=== PATIENT | female | born 1975 | race Caucasian/White ===

== ENCOUNTER 2016-11-13 05:53 | Inpatient (IN) ==
[2016-11-13] MEDS ORDERED: ASPIRIN PO STA (06:16)
[2016-11-13 06:33] LABS: MANUAL DIFF NEEDED? NO
[2016-11-13 06:39] LABS: BASO% 0.5 % (0.0-0.8); EOS# 0.28 X1000 (0.0-0.7); EOS% 2.3 % (0.0-10.0); HEMATOCRIT 40.8 % (37.0-47.0); HEMOGLOBIN 13.6 g/dL (12.0-16.0); IMM GRAN# 0.02 X1000 (0.0-0.04); IMM GRAN% 0.2 % (0.0-0.5); LYMPH# 1.47 X1000 (1.2-3.4); LYMPH% 12.3 % (20.5-51.1); MCH 30.6 PG (27-31); MCHC 33.3 g/dL (33-37); MCV 91.9 FL (81-99); MONO# 0.73 X1000 (0.11-0.59); MONO% 6.1 % (1.7-9.3); MPV 9.2 FL (7.4-10.4); NEUT% 78.6 % (42.2-75.2); PLT 268 X1000 (130-400); RBC 4.44 XMIL (4.2-5.4)
--- NOTE | 2016-11-13 06:45 | PROVIDER DOCUMENTATION ---
HPI-Chest Pain - General Chief Complaint: Chest Pain Stated Complaint: CP Time Seen by Provider: 11/13/16 06:18 Source: patient Allergies/Adverse Reactions: Patient Allergies Allergy/AdvReac Type Severity Reaction Status Date / Time No Known Allergies Allergy Verified 11/13/16 06:21 Home Medications: Home Medication List Medication Instructions Recorded Confirmed Last Taken Type Bupropion HCl [Budeprion Xl] 300 mg PO DAILY 11/13/16 11/13/16 11/12/16 History Citalopram [Celexa] 20 mg PO DAILY 11/13/16 11/13/16 11/12/16 History l-Norgest/E.estradiol-E.estrad 1 each PO DAILY 11/13/16 11/13/16 11/12/16 History [Amethia Lo Tablet] - History of Present Illness-CP Nature of Presenting Problem: Pt awoke around 4:30 this am with mildly pleuritic chest pain but no SOB, calf pain, dtc. She recently started on BCPs, denies any family of clots or CV disease, denies SNOW or CP on exertion. Location: reports: substernal, shoulder Chest Pain Radiation: reports: no radiation Quality of Pain: reports: sharp Onset/Duration: 4-6 hours ago Timing: improving Context/Activities at Onset: reports: sleep Modifying Factors: improves with: nothing Associated Symptoms: reports: denies symptoms Nitro Today/Relief: no nitro taken today Aspirin Treatment Today: no aspirin today Prior Chest Pain/Cardiac Workup: reports: no prior chest pain Similar Symptoms Previously?: No Recently Seen Here or By Another Healthcare Provider: No Review of Systems - Adult - REVIEW OF SYSTEMS - ADULT Constitutional: reports: no symptoms reported Eyes: reports: no symptoms reported Ears, Nose, Mouth & Throat: reports: no symptoms reported Cardiovascular: reports: see HPI Respiratory: reports: no symptoms reported Gastrointestinal: reports: no symptoms reported Genitourinary: reports: no symptoms reported Musculoskeletal: reports: no symptoms reported Integumentary: reports: no symptoms reported Neurological: reports: no symptoms reported Psychiatric: reports: no symptoms reported Endocrine: reports: no symptoms reported Hematologic/Lymphatic: reports: no symptoms reported Allergic/Immunologic: reports: no symptoms reported All Other Systems: Reviewed and Negative Past History - Adult - PAST MEDICAL HISTORY-ADULT Review of Records: reports: Old Records Reviewed, Nursing Assessment Review, Medications Reviewed Cardiovascular: reports: denies history. denies: cardiac disease Respiratory: denies: asthma Gastrointestinal: reports: denies history, cholelithiasis Physical Exam-General - PHYSICAL EXAM-ADULT Initial Vital Signs Reviewed: Yes - CONSTITUTIONAL General Appearance: appears well, alert, no apparent distress - EYES Eyes: PERRL/EOMI, pink conjunctivae - HEAD, EARS, NOSE, MOUTH & THROAT HENMT: normocephalic/atraumatic, moist mucous membranes, normal ENT inspection - NECK Neck: non-tender, full range of motion - RESPIRATORY Respiratory: chest non-tender, lungs clear, normal breath sounds - CARDIOVASCULAR Cardiovascular: normal peripheral pulses, regular rate, rhythm, no edema, no gallop, no JVD, no murmur - GASTROINTESTINAL (ABDOMEN) Abdominal Exam: normal bowel sounds, non tender, soft, no organomegaly - LYMPHATIC Lymphatic: no adenopathy - MUSCULOSKELETAL Back Exam: normal inspection, no CVA tenderness, no vertebral tenderness Extremity: normal range of motion, no pedal edema, no calf tenderness, normal capillary refill Peripheral Pulses: radial (R): 3+, radial (L): 3+ - SKIN Integumentary: normal color, normal turgor - NEUROLOGIC Neurologic: grossly normal - PSYCHIATRIC Psych/Mental Status: normal mood/affect Progress - PLAN OF CARE/RESULTS Progress/Plan/Lab Results: Vital Signs - 8 hr 11/13/16 05:57 11/13/16 07:12 11/13/16 08:23 Temperature 98.1 F Pulse Rate 73 71 72 Respiratory Rate 20 14 14 Blood Pressure 109/66 114/68 115/74 O2 Sat by Pulse Oximetry 99 95 98 Bedside Urine ED: Urine Bedside Start: 11/13/16 06:26 Freq: Status: Active Activity Type Activity Date Activity User E-Sign Co-Sign Detail Recorded Client Recorded Date Recorded By Document 11/13/16 06:26 [id number] 11/13/16 06:27 [id number] 11/13/16 06:26 Point of Care [Bedside Point of Care] -Lot # [id number] - Results Negative -Control Line Visible? Yes -Additional Comment exp. 12/2017 Laboratory Results - last 24 hr 11/13/16 11/13/16 11/13/16 06:15 06:15 06:15 WBC 11.96 H RBC 4.44 Hgb 13.6 Hct 40.8 MCV 91.9 MCH 30.6 MCHC 33.3 RDW Std Deviation 12.7 Plt Count 268 MPV 9.2 Immature Gran % (Auto) 0.2 Neut % (Auto) 78.6 H Lymph % (Auto) 12.3 L Falls % (Auto) 6.1 Eos % (Auto) 2.3 Baso % (Auto) 0.5 Immature Gran # (Auto) 0.02 Neut # (Auto) 9.40 H Lymph # (Auto) 1.47 Falls # (Auto) 0.73 H Eos # (Auto) 0.28 Baso # (Auto) 0.06 PT INR PTT (Actin FS) D-Dimer 3.14 H Sodium 138 Potassium 4.2 Chloride 102 Carbon Dioxide 24 L Anion Gap 12 BUN 11 Creatinine 0.8 Estimated GFR/1.73 m2 > 60 BUN/Creatinine Ratio 14 Glucose 90 Calculated Osmolality 275 Calcium 9.6 Magnesium 2.0 Total Bilirubin 0.43 AST 12 ALT 10 Alkaline Phosphatase 49 Creatine Kinase 45 Troponin T Tul-Q-Yjevbhdnato Pept Total Protein 7.0 Albumin 4.2 Globulin 2.8 Albumin/Globulin Ratio 1.5 11/13/16 11/13/16 11/13/16 06:15 06:15 06:15 WBC RBC Hgb Hct MCV MCH MCHC RDW Std Deviation Plt Count MPV Immature Gran % (Auto) Neut % (Auto) Lymph % (Auto) Falls % (Auto) Eos % (Auto) Baso % (Auto) Immature Gran # (Auto) Neut # (Auto) Lymph # (Auto) Falls # (Auto) Eos # (Auto) Baso # (Auto) PT 10.0 INR 0.96 PTT (Actin FS) 24.9 D-Dimer Sodium Potassium Chloride Carbon Dioxide Anion Gap BUN Creatinine Estimated GFR/1.73 m2 BUN/Creatinine Ratio Glucose Calculated Osmolality Calcium Magnesium Total Bilirubin AST ALT Alkaline Phosphatase Creatine Kinase Troponin T < 0.010 Mrd-T-Ahrmohbqkrw Pept 285 H Total Protein Albumin Globulin Albumin/Globulin Ratio Orders Category Date Time Status Cardiac Monitoring DIRECTED Care 11/13/16 06:16 Active Saline Loc NOW Care 11/13/16 06:16 Active ANGIOGRAM/PULMONARY ARTERIES [CT] Stat Exams 11/13/16 07:21 Completed CHEST-2 VIEWS [RAD] Stat Exams 11/13/16 06:16 Completed CBC WITH ELECTRONIC DIFF [HEME] Stat Lab 11/13/16 06:15 Completed CK PROFILE [SP CHEM] Stat Lab 11/13/16 06:15 Completed COMPREHENSIVE METABOLIC PANEL [CHEM] Stat Lab 11/13/16 06:15 Completed D-DIMER [CHEM] Stat Lab 11/13/16 06:15 Completed MAGNESIUM [CHEM] Stat Lab 11/13/16 06:15 Completed PRO B-NATRIURETIC PEPTIDE Stat Lab 11/13/16 06:15 Completed PROTIME WITH INR [COAG] Stat Lab 11/13/16 06:15 Completed PTT [COAG] Stat Lab 11/13/16 06:15 Completed TROPONIN T Stat Lab 11/13/16 06:15 Completed Aspirin Med 11/13/16 06:16 Discontinued 325 mg PO STAT STA Heparin Med 11/13/16 08:29 Once 5,200 unit IV NOW ONE EKG [EKG] Stat Ther 11/13/16 05:55 Draft Result Diagrams: 11/13/16 06:15 11/13/16 06:15 - EKG 1 Time of EKG reading by physician:: 06:30 EKG Read and Signed by:: Bang White EKG Interpretation (*Must complete 3 of following elements*): Abnormal Rate: 70 [place]: normal QRS: normal DE Interval: normal ST Wave: non-specific ST changes Prior EKG Comparison: no prior EKG - CT/MRI 1 CT Study: Thorax Impression: Abnormal, See EMR Report (Angiogram confirms bilateral pul emboli) Departure - Departure Time of Disposition Decision: 08:41 DIAGNOSIS: Pulmonary embolism Qualifiers: Pulmonary embolism type: other Chronicity: acute Acute cor pulmonale presence: without acute cor pulmonale Qualified Code(s): I26.99 - Other pulmonary embolism without acute cor pulmonale Disposition: ADMITTED INPATIENT 09 Certified Medical Emergency: Emergent Condition: Fair Referrals and Follow-Ups: Abida Magana MD [Primary Care Provider] - - Critical Care Note This patient required my direct & personal management of CC.: Yes Total Time (mins): 30 Critical Care Statement: This patient required my direct personal management to treat or rule out processes, the absence of which, could potentiallly result in sudden, clinically significant life or limb threatening deterioration.
[2016-11-13 06:58] LABS: AGAP 12; ALBUMIN 4.2 g/dL (3.5-5.0); ALKALINE PHOSPHATASE 49 U/L (32-104); BUN 11 mg/dL (8-22); CALCIUM 9.6 mg/dL (8.8-10.2); CHLORIDE 102 mmol/L (98-107); CK PROFILE 45 U/L (24-173); COSMO 275; GOT 12 U/L (10-30); GPT 10 U/L (10-36); POTASSIUM 4.2 mmol/L (3.5-5.1); SODIUM 138 mmol/L (136-145); TCO2 24 mmol/L (25-35); TOTAL BILIRUBIN 0.43 mg/dL (0.20-1.00)
[2016-11-13 07:00] LABS: INR 0.96; PTT 24.9 Seconds (22.0-36.0)
--- NOTE | 2016-11-13 07:01 | EKG Report ---
Test Performed on : 11/13/2016 06:02:17 AM Test Reason : cp Blood Pressure : / mmHG Vent. Rate : 070 BPM Atrial Rate : 070 BPM P-R Int : 126 ms QRS Dur : 078 ms QT Int : 388 ms P-R-T Axes : 042 045 000 degrees QTc Int : 419 ms Normal sinus rhythm. Nonspecific T wave abnormality Abnormal ECG No previous ECGs available Unconfirmed Result
--- NOTE | 2016-11-13 08:11 | Diag Imaging Result Doc PS360 ---
CHEST-2 VIEWS - 11/13/2016 6:16 AM INDICATION: Chest pain COMPARISON: None FINDINGS: The lungs are normally expanded and clear. Heart size and mediastinal contours are normal. No pneumothorax or pleural effusion. IMPRESSION: Negative exam. Electronically signed by Nick Avery 11/13/2016 7:44 AM
--- NOTE | 2016-11-13 08:25 | Diag Imaging Result Doc PS360 ---
EXAM: ANGIOGRAM/PULMONARY ARTERIES COMPARISON: None. FINDINGS: There are prominent filling defects seen in second and higher order branches of the right pulmonary artery supplying the right lower lobe. There are smaller filling defects seen in higher order branches of the left pulmonary artery supplying to the left lower lobe. This is consistent with acute pulmonary emboli. The clot burden is at least moderate. The heart is probably borderline prominent. There is no evidence of aortic dissection or aneurysm. There is no evidence of significant mediastinal or hilar lymphadenopathy. There is subsegmental atelectasis at both lung bases. There are trace bilateral effusions. There is a tiny nodular density along the minor fissure on the right measuring less than 4 mm. Statistically, this most likely represents a noncalcified granuloma if the patient has no risk factors for malignancy. IMPRESSION: 1. Bilateral acute pulmonary emboli with a moderate clot burden, worse on the right. 2. Bibasilar subsegmental atelectasis and trace bilateral effusions. 3. Other incidental/nonacute findings detailed above. 4. This critical result was reported to Dr. Bang White in the emergency department at 0822. Electronically signed by Michael Geronimo 11/13/2016 8:22 AM
[2016-11-13] MEDS ORDERED: HEPARIN IV ONE (08:29)
[2016-11-13] MEDS: DUONEB (A & A) INH SCH ×4 (11:00→23:17)
--- NOTE | 2016-11-13 11:53 | HISTORY AND PHYSICAL ---
PRIMARY CARE PHYSICIAN: Dr. Abida Magana. CHIEF COMPLAINT: Chest pain. HISTORY OF PRESENT ILLNESS: Mrs. Richardson is a very pleasant, 41-year-old female with a history of depression and anxiety who recently started control around 2 weeks ago. She comes into the ER today with a fairly acute onset of midsternal chest pain which she describes as sharp and shooting and radiating up through the left neck and to the left arm. This was not associated with shortness of breath, nausea, vomiting, or diaphoresis. The pain was severe enough for her to come into the ER for evaluation. In the ER, labs were done and she was noted to have fairly elevated D-dimer, a subsequent CTA of the chest was positive for scattered bilateral PE's. She is hemodynamically stable. Her laboratory data is largely unremarkable. She does report that she had some mild chest discomfort yesterday and she actually went to her PCP last week for lower back pain with radicular type symptoms to her right leg. At that time, she was given p.o. steroids and had a lumbar spine x-ray done which was negative for any acute process. She denies any history of nicotine use. She does report that she smokes occasional marijuana. She denies any known family history of hypercoagulable disorders. Again she is hemodynamically stable. She is now going to be admitted for further treatment and evaluation. PAST MEDICAL HISTORY: 1. Depression and anxiety. 2. Marijuana abuse. SURGICAL HISTORY: Cholecystectomy, tonsillectomy. SOCIAL HISTORY: Patient denies tobacco use. She reports social alcohol use and occasional marijuana use. She is . 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 She has 1 child. FAMILY HISTORY: Father from cirrhosis of the liver secondary to alcoholism. Mother is alive. She has a history of hypertension, hyperlipidemia. Both brothers are alive and they have no known medical problems. Patient denies any known family history of hypercoagulable disorders. REVIEW OF SYSTEMS: Patient does report a 15 pound weight gain and night sweats. Otherwise, a 14 point review of systems was obtained and found to be negative with the exception of the HPI. Specifically the patient denies any gastrointestinal bleeding, melena, hematemesis or uncontrolled bleeding. ALLERGIES: No known drug allergies. HOME MEDICATIONS: Bupropion 300 mg p.o. daily, Celexa 20 mg daily and control as directed. PHYSICAL EXAMINATION: VITAL SIGNS: Blood pressure is 115/74, heart rate is 72, respiratory rate 14, O2 saturation 98% on room air. Temperature is 98.1. GENERAL: This is a well-developed, well-nourished, female, lying in hospital bed in no acute distress. NEUROLOGIC: The patient is awake, alert, and oriented. She follows commands without focal deficits. HEENT: Head is atraumatic and normocephalic. Pupils are equal, round, and reactive to light. Oral mucosa is moist. Trachea is midline. No JVD or carotid bruits. CHEST: Clear to auscultation bilaterally. CV: Regular rate and rhythm. S1, S2 is noted. No murmurs, gallops, clicks, or rubs. GI: Soft, nondistended, nontender. Bowel sounds positive. EXTREMITIES: Without edema, clubbing or cyanosis. Pulses are palpable bilaterally. No calf swelling or tenderness. DIAGNOSTIC DATA: CTA of the chest shows bilateral acute pulmonary emboli with a moderate clot burden worse on the right, basilar subsegmental atelectasis and trace bilateral effusions. A chest x-ray negative for exam. EKG shows normal sinus rhythm with nonspecific diffuse T-wave abnormalities. The rate 70 beats per minute. WBC 11.96, hemoglobin 13.6, hematocrit 40.8, platelet count 268,000. PT 10. INR 0.96. D-dimer 3.14. Sodium 138, potassium 4.2. Chloride 102. CO2 24, anion gap 12, BUN 11, creatinine 0.8, glucose is 90. Calcium 9.6, magnesium 2.0. LFTs within normal limits. Troponin and CKs are negative. ProBNP 285, albumin 4.2. Urine test is negative. ASSESSMENT AND PLAN: 1. Bilateral PE's: We will start the patient on Lovenox and transition to a novel anticoagulant. We will check an echocardiogram to rule out any strain to the myocardium. We have ordered a hypercoagulable workup although this will not change our treatment. We have advised the patient to stop her control as well as to stop smoking marijuana. Will continue to monitor telemetry and trend her enzymes. 2. Anxiety and depression: Chronic and stable, continue home medications. 3. Marijuana abuse: We have advised the patient to stop smoking marijuana. Will continue cessation education. 4. DVT prophylaxis is provided with Lovenox. Further recommendations to follow. Dictated by MARIE Michael for Jannie Worthy MD cc: MARIE Michael MD Lindsay E. Smith, MD The patient was seen and examined by me. I agree with the assessment and plan as dictated. The plan of care was discussed with the patient at the bedside in the ER. AMARIS
[2016-11-13] MEDS: LOVENOX SUBQ SCH (13:00)
[2016-11-13] MEDS: NS 1,000 ML IV SCH (13:13)
[2016-11-13 14:07] LABS: URINE CULTURE NEEDED? NO; URINE MICRO REVIEW NEEDED? NO; URINE SOURCE CLEAN CATCH
[2016-11-13 14:10] LABS: BILIRUBIN URINE NEGATIVE (NEGATIVE); BLOOD URINE NEGATIVE (NEGATIVE); COLOR STRAW; GLUCOSE URINE NEGATIVE (NEGATIVE); LEUKOCYTES URINE NEGATIVE (NEGATIVE); NITRITE URINE NEGATIVE (NEGATIVE); PROTEIN URINE NEGATIVE (NEGATIVE); SP GRAVITY URINE 1.009; TURBIDITY URINE CLEAR (CLEAR); UROBILINOGEN URINE NORMAL (NORMAL)
[2016-11-13 14:11] LABS: UR EPITHELIAL CELLS <10 /HPF (<10); URINE BACTERIA NEGATIVE /HPF; URINE RBC <10 /HPF (<10); URINE WBC <10 /HPF (<10)
[2016-11-13] MEDS: NORCO-7.5 PO PRN (18:24)
[2016-11-14] MEDS: NORCO-7.5 PO PRN ×3 (02:17→17:12)
[2016-11-14] MEDS: LOVENOX SUBQ SCH ×2 (02:17→14:21)
[2016-11-14] MEDS: NS 1,000 ML IV SCH ×2 (02:21→20:32)
[2016-11-14] MEDS: DUONEB (A & A) INH SCH ×6 (03:47→23:00)
[2016-11-14] MEDS: ZOFRAN IV PRN (06:29)
[2016-11-14 06:40] LABS: MCH 30.5 PG (27-31)
[2016-11-14 06:53] LABS: AGAP 10; BUN 7 mg/dL (8-22); CALCIUM 8.5 mg/dL (8.8-10.2); CHLORIDE 100 mmol/L (98-107); COSMO 269; SODIUM 136 mmol/L (136-145); TCO2 26 mmol/L (25-35)
[2016-11-14] MEDS: WELLBUTRIN XL PO SCH (08:09)
[2016-11-14] MEDS ORDERED: CELEXA PO SCH (09:00)
--- NOTE | 2016-11-14 09:15 | ECHO REPORT ---
ORDER DATE: 11/13/2016 ECHOCARDIOGRAPHIC MEASUREMENTS: 1. Interventricular septum 0.8, left ventricular posterior wall 0.9, diastolic diameter 4.2, left atrium 3.3, aorta 3.2. 2. Technically suboptimal study. Poor apical windows. 3. Aortic valve leaflets are trileaflet. Pulmonic valve not well visualized. Mitral valve was normal. Tricuspid valve was normal. 4. Normal left ventricular cavity size. Estimated ejection fraction of 55-60%. 5. There is trace mitral regurgitation, trace tricuspid regurgitation. Peak velocity across the aortic valve less than 2 m/sec. There is no aortic stenosis or regurgitation. Peak velocity across the tricuspid valve less than 2 m/sec. 6. There is no pericardial effusion or obvious intracardiac mass or thrombus seen. cc: MD Graeme Loaiza CRNP
[2016-11-14 09:21] LABS: HEMATOCRIT 39.2 % (37.0-47.0); HEMOGLOBIN 12.5 g/dL (12.0-16.0); MCHC 31.9 g/dL (33-37); MCV 95.6 FL (81-99); MPV 9.6 FL (7.4-10.4); RBC 4.1 XMIL (4.2-5.4)
[2016-11-14] MEDS ORDERED: IMITREX SUBQ ONE (09:32)
[2016-11-14] MEDS ORDERED: SODIUM CHLORIDE 0.9% INJ PRN (09:33)
[2016-11-14] MEDS: PHENERGAN IV PRN ×2 (10:15→21:58)
--- NOTE | 2016-11-14 12:31 | CONSULTATION ---
DATE OF CONSULTATION: 11/14/2016 REASON FOR CONSULT: The patient has bilateral acute pulmonary emboli with moderate clot burden. HISTORY OF PRESENT ILLNESS: This is a 41-year-old female who came to the emergency room after having some substantial midsternal chest pain with it radiating to the left neck and arm. Denied dyspnea, nausea, vomiting, diaphoresis, fevers, or chills, so she came to the emergency room for further evaluation. Her D-dimer was noted to be 3.14 in the emergency room, so a CTA of the chest was performed which showed bilateral acute pulmonary emboli with moderate clot burden, right greater than left, and bibasilar atelectasis and trace bilateral effusions. The patient has been started on Lovenox. She denies any Family history of any clotting disorders, any recent extended car rides or flights within the last month. The only thing that has been new to her is she started on control pills, [address] Glasgow. She denies any cigarette smoking. She does, however , smoke marijuana socially. She denies any recent trauma to her legs. 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 REVIEW OF SYSTEMS: All other review of systems negative. SOCIAL HISTORY: Patient denies nicotinism. She drinks alcohol socially and smokes marijuana socially. She works at home and sits all day. FAMILY HISTORY: There is a maternal grandfather with strokes, with no known history of hypercoagulable disorders. ALLERGIES: No known allergies. HOME MEDICATIONS: Celexa, control pills, and Wellbutrin. PAST MEDICAL HISTORY: Anxiety, depression, and migraines. PHYSICAL EXAMINATION: Vital Signs: Stable. Constitutional: This is a female who is tearful and states that she has a migraine. HEENT: Head is normocephalic, atraumatic. Pupils equal, round, and symmetric. Cardiovascular: S1 and S2 audible to auscultation with no heaves, lifts, or thrills. Pulmonary: Diminished at bilateral bases, with normal respiratory effort. Abdomen: Soft, nondistended, nontender. Extremities: There is no edema. Musculoskeletal: Moves all extremities. Skin: No petechiae, ecchymosis, or rash. Neurologic: Alert and oriented x3. DIAGNOSTIC DATA: CTA of the chest shows bilateral acute pulmonary emboli with moderate clot burden, right greater than left. White count 9.64, hemoglobin 12.5, hematocrit 39.2, platelet count 236,000. Sodium is 139, potassium 4.0, BUN is 7, and creatinine 0.7. ASSESSMENT AND PLAN: 1. Bilateral acute pulmonary embolism. Currently on Lovenox, which we agree with. We will perform a hypercoagulable workup and follow along. She has also had bilateral lower extremity ultrasounds performed. They have not resulted yet and they are obtaining an echocardiogram, as well. 2. Anxiety and depression, stable. Continuing home medications. 3. Migraines, per primary team.. 4. Pain management: Continue current management Dictated by MARIE Yeung for Javier Arteaga MD cc: MARIE Yeung MD Jeanine Loncar MTDD
--- NOTE | 2016-11-14 13:00 | PROGRESS NOTE ---
DATE: 11/14/2016 SUBJECTIVE: The patient states that early this morning she woke up with severe nausea and vomiting, and the beginnings of a migraine. OBJECTIVE: Vital Signs: Temperature 97.9, blood pressure 110/62, heart rate 65, respirations 20, O2 saturation 100% on 2L nasal cannula. General: This is a middle-aged female, lying in bed in no acute distress. Head: Normocephalic, atraumatic. Heart: S1 and S2 normal. Regular rate and rhythm. Lungs: Clear to auscultation bilaterally. No wheezing. No rales. No rhonchi. Abdomen: Positive bowel sounds. Soft, nontender, nondistended. Extremities: No edema. No cyanosis. No calf tenderness. Neurologic: The patient is alert oriented x3. LABORATORIES: White blood cell count 9.6, hemoglobin 12, hematocrit 39, platelets 236,000. Sodium 136, potassium 4, chloride 100, CO2 of 26, BUN 7, creatinine 0.7, glucose 89. ASSESSMENT AND PLAN: 1. Bilateral pulmonary embolism. the patient's 2-dimensional echocardiogram was unremarkable. Continue on full-dose Lovenox. Hematology is following. 2. Nausea and vomiting. Will check an abdominal x-ray and start the patient on antiemetic therapy. We will also consult Gastroenterology. 3. Migraine headache. Will give the patient a dose of Imitrex and monitor closely. cc: Jannie Worthy MD
--- NOTE | 2016-11-14 13:50 | Diag Imaging Result Doc PS360 ---
EXAM: ABDOMEN FLAT/UPRIGHT HISTORY: nausea/vomiting COMMENT: There is a large amount of formed stool throughout the transverse and left colon. There is also stool in the ascending colon. The stomach and small bowel are nondistended. There is no evidence of organomegaly or mass. There has been previous cholecystectomy. IMPRESSION: Constipation. Electronically signed by Gordon Shane 11/14/2016 1:47 PM
[2016-11-14] MEDS: SODIUM CHLORIDE 0.9% INJ SCH (14:20)
[2016-11-14] MEDS: PROTONIX IV SCH (14:21)
--- NOTE | 2016-11-14 16:07 | CONSULTATION ---
DATE OF CONSULTATION: 11/14/2016 REASON FOR REFERRAL: Nausea and vomiting. HISTORY OF PRESENT ILLNESS: This is a 41-year-old, white female who reports onset of chest pain and shortness of breath yesterday. She came to the emergency room for evaluation and was found to have an elevated D-dimer. A CTA of the chest was positive for bilateral PE. She reported an episode of nausea and vomiting today. She has also reported having a migraine and she had taken some pain medication on an empty stomach. Otherwise prior to this she has had no problems with nausea and vomiting. She does have a history of reflux in the past. She denies dysphagia. Currently her nausea has improved. She reports recently starting oral control medication to see if that helped with her migraines. PAST MEDICAL HISTORY: Anxiety and depression. PAST SURGICAL HISTORY: Cholecystectomy and tonsillectomy. ALLERGIES: No known drug allergies. HOME MEDICATIONS: Klonopin 1 mg as needed. Celexa 20 mg daily. Bupropion 300 mg daily. Amethia tablets 1 daily. SOCIAL HISTORY: Denies tobacco use. She does report smoking marijuana on occasion, socially. REVIEW OF SYSTEMS: Per HPI. PHYSICAL EXAMINATION: Vital Signs: Temperature 97.9 degrees, pulse 65, respirations 20, blood pressure 110/62. General: Patient is awake, alert, in no acute distress. HEENT: Normocephalic, atraumatic. Pupils equal, round, reactive to light. Sclerae nonicteric. Cardiovascular: Regular rate and rhythm. Respiratory: Lung sounds essentially clear bilaterally. Abdomen: Soft, nontender. Positive bowel sounds. Extremities: No lower extremity edema noted. DIAGNOSTIC RESULTS: CTA of the chest showed bilateral acute pulmonary emboli with moderate clot burden worse on the right, basilar subsegmental atelectasis and trace bilateral effusions. LABORATORY RESULTS: Hematology: White count 9.64, hemoglobin 12.5, hematocrit 39.2, MCV 95.6, Coagulation: Pro time 10.0. INR 0.96. PTT 24.9, D-dimer was 3.14. Chemistry : Sodium 136, potassium 4.0, chloride 100, CO2 26, BUN 7, creatinine 0.7, glucose 89, total bilirubin 0.43, AST 12, ALT 10, alkaline phosphatase 49, CK 42, troponin less than 0.010. ASSESSMENT: 1. Chest pain. 2. Shortness of breath. 3. Bilateral pulmonary embolus with recent hormone control therapy started 2 weeks ago. 4. Nausea, vomiting which has now subsided. PLAN: Continue supportive care. Continue PPI. Continue p.r.n. medications for nausea and vomiting. We do not recommend proceeding with endoscopy at the present time. Patient's symptoms could have been related to her migraine or taking pain medication on an empty stomach. No need to urgently stop anticoagulation with her recent findings of pulmonary embolism outweighing the benefit of proceeding with EGD at the current time. We will continue to follow and if needed further plans will be made as far as endoscopy procedure. Continue PPI and p.r.n. medications. GI will be available as needed. I have discussed this case with Dr. Leon. I recommended to avoid any hormone therapy in the future due to her new diagnosis of pulmonary embolism. Thank you for this consultation. Dictated by MARIE Cabezas for Hal Leon MD cc: MARIE Young MD [facility]
[2016-11-14] MEDS: DULCOLAX PR SCH (20:33)
[2016-11-14] MEDS: COLACE PO SCH (20:33)
[2016-11-14] MEDS: MIRALAX PO SCH (20:33)
[2016-11-15] MEDS: SODIUM CHLORIDE 0.9% INJ SCH ×2 (00:10→15:18)
[2016-11-15] MEDS: LOVENOX SUBQ SCH ×2 (00:10→15:18)
[2016-11-15] MEDS: PROTONIX IV SCH ×2 (00:10→15:18)
[2016-11-15] MEDS: DUONEB (A & A) INH SCH ×3 (05:00→11:33)
[2016-11-15] MEDS: NORCO-7.5 PO PRN ×2 (05:28→15:07)
[2016-11-15] MEDS: NS 1,000 ML IV SCH ×2 (05:29→20:54)
[2016-11-15 06:32] LABS: HEMATOCRIT 37.3 % (37.0-47.0); HEMOGLOBIN 11.9 g/dL (12.0-16.0); MCH 30.4 PG (27-31); MCHC 31.9 g/dL (33-37); MCV 95.4 FL (81-99); MPV 8.8 FL (7.4-10.4); RBC 3.91 XMIL (4.2-5.4)
[2016-11-15 06:46] LABS: AGAP 10; BUN 7 mg/dL (8-22); CALCIUM 8.7 mg/dL (8.8-10.2); CHLORIDE 104 mmol/L (98-107); COSMO 275; POTASSIUM 3.9 mmol/L (3.5-5.1); SODIUM 138 mmol/L (136-145); TCO2 24 mmol/L (25-35)
--- NOTE | 2016-11-15 09:10 | Extremity Venous Study ---
PROCEDURE NAME: Venous U/S Bilateral Legs - 11/13/2016 REFERRING PHYSICIAN: Dr. White in the ED. INTERPRETING PHYSICIAN: Bang Gagnon MD. CRYPTOLOGICAL TECHNICIAN: INDICATION: The patient has a history of bilateral pulmonary emboli. DESCRIPTION OF PROCEDURE: Bilateral lower extremity images accomplished. The common femoral, superficial femoral, deep femoral, popliteal, posterior tibial, peroneal, and greater saphenous are imaged bilaterally. The Doppler is used to evaluate the veins for spontaneity, phasicity, respiratory excursion, and distal augmentation. All veins are compressible. No intraluminal clot is seen. INTERPRETATION: No evidence of deep or superficial venous thrombosis in either lower extremity veins identified. cc: MD Graeme De Oliveira CRNP
[2016-11-15] MEDS: WELLBUTRIN XL PO SCH (09:41)
[2016-11-15] MEDS: CELEXA PO SCH (09:42)
[2016-11-15] MEDS: COLACE PO SCH ×2 (09:43→20:53)
[2016-11-15] MEDS: MIRALAX PO SCH ×2 (09:43→20:54)
[2016-11-15] MEDS: ZOFRAN IV PRN (15:07)
--- NOTE | 2016-11-15 15:15 | PROGRESS NOTE ---
DATE: 11/15/2016 SUBJECTIVE: The patient is resting comfortably in bed. She states she feels a whole lot better today. She has not had a bowel movement yet. OBJECTIVE: Vital Signs: Temperature 98.6, blood pressure 114/59, heart rate 86, respirations 18, O2 saturations 98% on room air. General: This is a young female lying in bed, in no acute distress. Head: Normocephalic, atraumatic. Heart: S1, S2. Normal. Regular rate and rhythm. Lungs: Clear to auscultation bilaterally. No wheezing. No rales. No rhonchi. Abdomen: Positive bowel sounds. Soft, nontender, nondistended. Extremities: No edema. No cyanosis. Neurologic: The patient is alert and oriented x3. LABS: Reviewed. ASSESSMENT AND PLAN: 1. Bilateral pulmonary embolism. Continue on Lovenox. Hematology is following. 2. Constipation. Continue on scheduled laxative therapy. 3. Migraine. Stable. 4. Gastrointestinal prophylaxis. Continue on Protonix. cc: Jannie Worthy MD
[2016-11-15] MEDS: LACTULOSE PO SCH ×2 (15:17→20:53)
[2016-11-15] MEDS: DULCOLAX PR SCH (20:54)
[2016-11-16] MEDS: LOVENOX SUBQ SCH (00:36)
[2016-11-16] MEDS: SODIUM CHLORIDE 0.9% INJ SCH (00:36)
[2016-11-16] MEDS: PROTONIX IV SCH ×2 (00:36→06:35)
[2016-11-16 06:26] LABS: HEMATOCRIT 37.3 % (37.0-47.0); MCH 30.2 PG (27-31); MCHC 32.2 g/dL (33-37); MPV 9.3 FL (7.4-10.4); RBC 3.97 XMIL (4.2-5.4)
[2016-11-16 06:40] LABS: AGAP 11; BUN 8 mg/dL (8-22); CALCIUM 8.6 mg/dL (8.8-10.2); CHLORIDE 103 mmol/L (98-107); COSMO 273; POTASSIUM 4.6 mmol/L (3.5-5.1); SODIUM 138 mmol/L (136-145); TCO2 24 mmol/L (25-35)
[2016-11-16 08:22] VITALS: BP 112/55
[2016-11-16] MEDS: COLACE PO SCH (09:08)
[2016-11-16] MEDS: CELEXA PO SCH (09:08)
[2016-11-16] MEDS: MIRALAX PO SCH (09:09)
[2016-11-16] MEDS: WELLBUTRIN XL PO SCH (09:09)
[2016-11-16] MEDS: LACTULOSE PO SCH (09:09)
--- NOTE | 2016-11-16 13:40 | DISCHARGE SUMMARY ---
ADMISSION DATE: 11/13/2016 DISCHARGE DATE: 11/16/2016 CONSULTATIONS: 1. Dr. Arteaga of Hematology Oncology. 2. Dr. Leon with Gastroenterology. PERTINENT PROCEDURES: 1. Pulmonary arteriogram showed bilateral acute PEs with moderate clot burden. Worse on the right. Bibasilar subsegmental atelectasis and trace bilateral effusions. 2. Echocardiogram showed an EF of 55-60%. Trace mitral regurgitation, trace tricuspid regurgitation. 3. Bilateral lower extremity venous ultrasound showed no evidence of deep or superficial venous thrombosis in either lower extremity. 4. Abdominal x-ray showed constipation. DISCHARGE DIAGNOSES: 1. Bilateral pulmonary embolism. 2. Constipation. 3. Migraine 4. Anxiety disorder 5. Depression HOSPITAL COURSE: Ms. Richardson is a 41-year-old, female, who carries a past medical history of depression and anxiety and marijuana use. The patient recently started control around 2 weeks ago. She came to the ED with fairly acute onset of midsternal chest pain which she describes as sharp and shooting and radiating to the left neck into the left arm , and it was not associated with shortness of breath, nausea, vomiting, diaphoresis. The pain was severe enough for her to come to the ED for evaluation. In the ED, labs were done and she was noted to have a fairly elevated D-dimer, a subsequent CTA of the chest was positive for scattered bilateral PEs. She was hemodynamically stable. Laboratory data was largely unremarkable. The patient was admitted for bilateral PE, started on full dose Lovenox and transitioned to an oral anticoagulation, as well as a hypercoagulable work up with a consult for Hematology. The patient was advised to stop her control, as well as marijuana cessation. Echocardiogram revealed an EF of 55-60%. Bilateral lower extremity venous Dopplers were negative. The patient did experience some episodes of nausea and vomiting for which GI was consulted. An abdominal x-ray showed constipation. She was started on laxative therapy. Her nausea and vomiting resolved. The patient will be transitioned to p.o. Xarelto. She will continue on laxative therapy. Dr. Worthy was discharging the patient home today. Vital signs temperature is 98.1 degrees, heart rate 70, respirations 16, blood pressure 112/55, O2 is 96% on room air. DISCHARGE DIET: Regular. DISCHARGE MEDICATIONS: 1. Celexa 60 mg p.o. daily. 2. Klonopin 1 mg p.o. p.r.n. 3. Xarelto 15 mg p.o. b.i.d. for 21 days and on December 08 the patient will start Xarelto 20 mg p.o. with supper. FOLLOWUP: The patient is being discharged home. She can follow up with Dr. Arteaga in 2 weeks as well as her primary care physician, Dr. Abida Magana, in 2 weeks. The patient can return to the ED for any worsening of symptoms. Dictated by MARIE Perez for Jannie Worthy MD cc: MD Abida Desai MD [facility]
== END 2016-11-16 12:52 | disposition home or self-care (01) ==
LOC: ED 05:53 → EDIPHOLD 10:24 → 3N 16:51
PROVIDERS: ATTEND Internal Medicine